=== PATIENT | female | born 1960 ===

== ENCOUNTER 2024-02-07 11:08 | Emergency (ER) | payer MEDICARE, SELFPAY ==
--- NOTE | ~2024-02-07 | XR_ITS ---
XR elbow LT min 3V Ordering provider: GINNY Cho History: . Fell today on elbow. Painful movement. cannot fully extend . Comparison: None. FINDINGS: BONES: No acute fracture or dislocation. Lucency is projected over the distal humerus are artifacts e xtending to the soft tissues. JOINT SPACES: Normal. SOFT TISSUES: Normal. No definite joint effusion. IMPRESSION: No definite acute osseous abnormality left elbow. Reviewed, dictated and finalized at location A.
[2024-02-07 11:59] VITALS: BP 187/70; PULSE 65; RESP 18; TEMP 36.6; O2SAT 100
--- NOTE | 2024-02-07 13:15 | ED.GENADULT ---
HPI - General Adult General Chief complaint: Extremity Injury, Upper Stated complaint: Left Arm Injury Source: patient Mode of arrival: ambulatory Limitations: no limitations History of Present Illness HPI narrative: Pt presents for evaluation of left elbow pain since last night. She indicates she was moving a box, when it collapsed. She fell to the ground and hit her left elbow against the ground. She did not hit her head. No loss of consciousness. She is not on blood thinners. She now reports 5/10 pain in the left elbow. Last night her pain was rated 9/10. She took tylenol and ibuprofen which seemed to help. Movement makes her symptoms worse. She is right hand dominant. Related Data Home Medications Medication Instructions Recorded Confirmed estradiol 1 mg tablet 1 mg DIRECTED 02/07/24 02/07/24 hydroxychloroquine 200 mg tablet 200 mg PO DIRECTED 02/07/24 02/07/24 omeprazole 40 mg capsule,delayed 40 mg DIRECTED 02/07/24 02/07/24 release Allergies Allergy/AdvReac Type Severity Reaction Status Date / Time codeine Allergy Severe Stopped Verified 02/07/24 12:06 Breathing Review of Systems Review of Systems: CONSTITUTIONAL: Denies fever, chills, or sweats. EYES: Denies visual changes, redness, or discharge. ENT: Denies rhinorrhea, congestion, sore throat, or otalgia. CARDIOVASCULAR: Denies chest pain, palpitations, or edema. RESPIRATORY: Denies cough or dyspnea. GASTROINTESTINAL: Denies abdominal pain, nausea, vomiting, or diarrhea. GENITOURINARY: Denies dysuria or hematuria. SKIN: Denies rash or itching. MUSCULOSKELETAL: Reports left elbow pain. NEUROLOGIC: Denies headache, numbness, dizziness, or weakness. PSYCHIATRIC: Denies anxiety or depression. [facility] Past Medical History Medical History (Updated 02/07/24 @ 13:19 by Praveen Barnard, GINNY, SHADI) GERD (gastroesophageal reflux disease) Hypertension Lupus Surgical History Surgical History History of appendectomy History of cholecystectomy Family History Family History Mother Family history non-contributory Social History Social History (Updated 02/07/24 @ 13:19 by Praveen Barnard, [facility], ) Smoking status: Never smoker Substance use: never Living arrangements: with family Gender identity (if verbalized by the patient): Female Sexual Orientation (if Verbalized by the Patient): Straight or Heterosexual Spiritual care concerns: No Exam Narrative: GENERAL: Well-appearing, well-nourished, and in no acute distress. HEAD: Normocephalic, atraumatic. EYES: PERRLA and EOMI. ENT: Nares clear, no rhinorrhea or epistaxis. Mucous membranes moist. Oropharynx without tonsillar hypertrophy exudate or other lesions. Bilateral TMs pearly patel nonbulging NECK: Supple. No adenopathy or masses. No carotid bruits or JVD CHEST: Clear to auscultation. No respiratory distress. No wheezes rales or rhonchi HEART: Regular rate and rhythm. No murmur heard. Normal peripheral pulses. ABDOMEN: Soft, nontender, nondistended, normal active bowel sounds. EXTREMITIES: There is tenderness throughout the left elbow. There is no crepitus or deformity. Full range of motion intact however she exhibits hesitancy with movement. Movement of the left elbow reproduces pain. 4/5 hand nurse private duty strength on left. 5/5 hand nurse private duty strength on right SKIN: Warm, dry, no rash. NEURO: No focal deficits. Alert and oriented x3. PSYCH: Normal mood and affect. Course Course Emergency Course: This is a 63-year-old female who presented for evaluation of left elbow pain following a fall yesterday. X-ray negative for fracture. Exam is consistent with contusion. Provided with sling. Advised on RICE therapy. OTC agents have been effective so continue as before. Follow up with primary provider. Go to the ER for intractable pain. Patient in agr
== END 2024-02-07 13:20 | disposition home or self-care (01) ==
PROVIDERS: Emergency Provider Nurse Practitioner; PCP Internal Medicine
DX: S50.02XA Contusion of left elbow, initial encounter (principal); I10 Essential (primary) hypertension; Z79.899 Other long term (current) drug therapy; W18.30XA Fall on same level, unspecified, initial encounter
CPT/HCPCS: 73080; 99203; A4565; G0463

== ENCOUNTER 2024-04-02 09:17 | Outpatient (CLI) | payer MEDICARE, SELFPAY ==
--- NOTE | ~2024-04-02 | XR_ITS ---
XR hand BI arthritis min 3V Ordering provider: Margi Rose MD History: . Pain . Comparison: None. FINDINGS: BONES: No acute fracture or dislocation. JOINT SPACES: Narrowing of the distal interphalangeal joints. SOFT TISSUES: Unremarkable. IMPRESSION: No acute osseous abnormality left and right hand. 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 Reviewed, dictated and finalized at location A. L SEWER
--- NOTE | ~2024-04-02 | XR_ITS ---
XR foot RT 2V Ordering provider: Margi Rose MD History: . Pain . Comparison: None. FINDINGS: BONES: No acute fracture or dislocation. Calcaneus spur. JOINT SPACES: Narrowing of the proximal and distal interphalangeal joints. No tarsal coalition. SOFT TISSUES: Normal. IMPRESSION: No acute osseous abnormality of the right foot. Reviewed, dictated and finalized at location A. [employer]
--- NOTE | ~2024-04-02 | XR_ITS ---
3 VIEWS LUMBAR SPINE Ordering provider: Margi Rose MD History: . Pain . Comparison: None. FINDINGS: VERTEBRAL BODIES: No visible fracture or subluxation. Levoscoliosis. DISK SPACES: Narrowing of the disc L4-L5 and L5-S1. Multilevel facet joint disease. SOFT TISSUES: Normal. IMPRESSION: No acute osseous abnormality lumbar spine. Multilevel degenerative disc disease. Reviewed, dictated and finalized at location A. ER APPRENTICE
--- NOTE | ~2024-04-02 | XR_ITS ---
XR sacroiliac joints min 3V Ordering provider: Margi Rose MD History: . Pain . Comparison: None. FINDINGS: BONES: No acute fracture or dislocation. JOINTS: The bilateral sacroiliac joint spaces appear slightly narrowed with osteoarthritic changes.. No bony fusion of the sacroiliac joints or bony erosions. SOFT TISSUES: Unremarkable. IMPRESSION: NO ACUTE OSSEOUS ABNORMALITY. MILD OSTEOARTHRITIC CHANGES OF THE SACROILIAC JOINTS. Reviewed, dictated and finalized at location A. EACH REP IMPRESSION: NO ACUTE OSSEOUS ABNORMALITY. MILD OSTEOARTHRITIC CHANGES OF THE SACROILIAC OVI NTS.
--- NOTE | ~2024-04-02 | XR_ITS ---
XR foot LT 2V Ordering provider: Margi Rose MD History: . Pain . Comparison: None. FINDINGS: BONES: No acute fracture or dislocation. Calcaneus spur. JOINT SPACES: Narrowing of the proximal and distal interphalangeal joints. No tarsal coalition. SOFT TISSUES: Normal. IMPRESSION: No acute osseous abnormality left foot. Mild to moderate Osteoarthritic changes. Reviewed, dictated and finalized at location A. LOCATOR
== END 2024-04-02 09:18 | disposition home or self-care (01) ==
PROVIDERS: PCP Internal Medicine; Visit Provider Internal Medicine
DX: M32.9 Systemic lupus erythematosus, unspecified (principal); M19.072 Primary osteoarthritis, left ankle and foot; M19.041 Primary osteoarthritis, right hand; M19.042 Primary osteoarthritis, left hand; M51.369 Other intervertebral disc degeneration, lumbar region without mention of lumbar back pain or lower extremity pain
CPT/HCPCS: 72110; 72202; 73130; 73620

== ENCOUNTER 2025-01-23 11:08 | Outpatient (CLI) | payer MEDICARE, SELFPAY ==
--- OUTSIDE RECORDS SUMMARY | 2025-01-23 12:06 | XMS_ITS | Encounter Summary ---
Author Organization [facility] Address [address] [place] [address] Phone Care Team Providers Care Grain Elevator Operator Name Role Phone Ben Perez MD Primary Care Provider [phone] Ben Perez MD Primary Care Provider Zonia Stone APRN, CNP Unavailable Priscila White MD Unavailable [phone] Reason for Visit * Reason Comments Medication Refill Encounter Details Date Type Department Care Team (Late st Contact Info) Description 12/26/2021 Refill [facility] - Gastroenterology - [address] [place] [address] Wyatt Waller MD [address] [place] [address] Medication Refill Social History Tobacco Use Types Packs/Day Years Used Date Smoking Tobacco: Never Smokeless Tobacco: Never Alcohol Use Standard Drinks/Week Comments Never 0 (1 standard drink = 0.6 oz pur e alcohol) AUDIT-C Answer Date Recorded Frequency of Alcohol Consumption Never 11/20/2018 Average Number of Drinks Not on file 019 Frequency of Binge Drinking Not on file 12/2018 Comments No Sex and Gender Information Value Date Recorded Sex Assigned at Not on file Legal Sex Female 12:18 AM CDT Gender Identity Not on file Sexual Orientation Not on file 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 * Telephone Encounter - Phoebe Hernandez - 12/29/2021 9:42 AM CDT Left message for pt to call back * Telephone Encounter - Renee Magana PAC - 12/28/2021 11:02 AM CDT Renal approved for 90 days. Further refills from primary care provider. If she is having problems needs an appointment. * Telephone Encounter - Tatiana Moser RN - 12/28/2021 10:58 AM CDT Pharmacy requesting refill of: Requested Prescriptions Pending Prescriptions Disp Refills ??? omeprazole (PriLOSEC) 40 MG CAPSULE DELAYED RELEASE [Pharmacy Med Name: Omeprazole 40 MG Oral Capsule Delayed Release] 90 Capsule 0 Sig: TAKE 1 CAPSULE BY MOUTH ONCE DAILY 1/2 HOUR BEFORE BREAKFAST Last fill: 12/30/[address] Waller Patients last OV with GI: 05/12/2020 Next Office Visit with GI: None scheduled. Per pathology report from 04/16/2020: Lico Shah, 04/18/2020 10:09 AM [facility] Biopsies are negative. Omeprazole order pended, please review. documented in this encounter Plan of Treatment Upcoming Encounters Date Type Department Care Team (Late st Contact Info) Description 04/30/2025 2:00 PM [facility] Office Visit [facility] - Primary Care - [place] [address] [place] [address] Ben Perez MD [address] [place] [address] documented as of this encounter Visit Diagnoses Not on filedocumented in this encounter Care Teams Grain Elevator Operator Relationship Specialty Start Date End Date Ben Perez MD PCP - General Internal Medicine 12/01/18 02/10/22 Ben Perez MD PCP - General Internal Medicine 03/18/22 Zonia Stone APRN, [employer] WORK[employer] [address] [place] [address] Nurse Practitioner Advanced Practice Nurse 05/27/23 Priscila White MD [address] [place] [address] Consulting Physician Gastroenterology 03/18/22 documented as of this encounter
--- OUTSIDE RECORDS SUMMARY | 2025-01-23 12:06 | XMS_ITS | Clinical Summary ---
Author Organization [facility] Address [address] [facility] [address] [place] [address] Phone Care Team Providers Care Home Health Attendant Name Role Phone Ben Perez MD Primary Care Provider Zonia Stone APRN, ROD STRAIGHTENER Unavailable Priscila White MD Unavailable [phone] Allergies Active Allergy Reactions Criticality Noted Date Comments Amlodipine Besylate Other (see Comments) 06/05/2024 constipation Carvedilol Unknown 12/08/2018 Codeine Anaphylaxis High 11/20/2018 Erythromycin Base Unknown 12/08/2018 Hydrochlorothiazide Itching Low 12/14/2019 Atorvastatin Calcium Other (see Comments) 12/08/2018 Lisinopril Other (see Comments) 11/20/2018 cough Hydrochlorothiazide-Triamter marilyn Unknown 12/08/2018 Pravastatin Sodium Unknown 12/08/2018 Rosuvastatin Unknown 12/08/2018 Statins Rash Medium 11/20/2018 Valsartan Other (see Comments) 12/08/2018 Valsartan-Hydrochlorothiazid e Itching Low 12/14/2019 Ezetimibe Rash Medium 11/20/2018 Medications estradiol (ESTRACE) 1 MG Tablet Take 1 mg by mouth every morning. Hazardous: Medication requires special safe handling and disposal. Active Acetaminophen (TYLENOL PO) Take 1-2 Tabs by mouth as needed. Active dicyclomine (BENTYL) 20 MG Tablet Take 1 Tablet by mouth 2 times daily. 120 Tablet 2 2 Active cyanocobalamin 1000 MCG Tablet Take 1,000 mcg by mouth daily. Active DULoxetine (CYMBALTA) [address] Particles Take 60 mg by mouth 2 times daily. 4 Active amLODIPine (NORVASC) 5 MG Tablet Take 1 tablet by mouth once daily 30 Tablet 5 Active losartan (COZAAR) 25 MG Tablet Take 1 Tablet by mouth 2 times daily. 180 Tablet 1 5 Active folic acid (FOLVITE) 1 MG Tablet Take 1,000 mcg by mouth daily. 5 Active methotrexate 2.5 MG Tablet TAKE 5 TABLETS BY MOUTH ONCE A WEEK 5 Active ezetimibe (ZETIA) 10 MG Tablet Take 1 tablet by mouth once daily 90 Tablet 1 5 Active omeprazole (PriLOSEC) 40 MG CAPSULE DELAYED RELEASE Take 1 capsule by mouth once daily 90 Capsule 5 Active Active Problems Problem Noted Date Diagnosed Date Systemic lupus erythematosus 07/25/2023 Mixed hyperlipidemia 07/25/2023 Vitamin B12 deficiency 07/25/2023 Essential hypertension, benign 07/11/2023 Arthralgia 07/11/2023 Chronic fatigue 07/11/2023 Gastroesophageal reflux disease without esophagi tis 05/12/2020 Irritable bowel syndrome with diarrhea 0 Encounters Date Type Department Care Team Description 11/25/2024 Refill [facility] - Gastroenterology - [place] [address] [place] [address] Ben Perez MD Medication Refill 11/18/2024 Refill [facility] - [facility] Medicine - [place] [address] [place] [address] Ben Perez MD Medication Refill 10/29/2024 2:45 PM CDT Office Visit [facility] - Internal Medicine - [place] [address] [place] [address] Ben Perez MD Essential hypertension, benign (Primary Dx); Mixed hyperlipidemia Discharge Disposition: Discharged to home or Selfcare 10/29/2024 Travel from Last 3 Months Immunizations Immunization Administration Dates Next Due Influenza Vaccine, Quadrivalent, PF 02/14,03/14/2021,03/05/2019,2017,03/01/2017 Influenza, Intradermal, Quad rivalent, Preservative Free 02/23/2016 Influenza, Recombinant, Quadrivalent,injectable, Pf 02/28/2020 Influenza, Seasonal, Injecta ble, Undefined 02/13/2014 Family History Medical History Relation Name Comments Diabetes Brother 1 Diabetes Brother 2 Diabetes Brother 3 Diabetes Brother 4 Coronary Artery Disease Father Diabetes Father Diabetes Paternal Aunt Diabetes Paternal Grandfather Diabetes Paternal Grandmother Diabetes Paternal Uncle Relation Name Status Comments Brother 1 Alive Brother 2 Alive Brother 3 Brother 4 Father Mother Paternal Aunt Paternal Grandfather Paternal Grandmother Paternal Uncle Social History Tobacco Use Types Packs/Day Years Used Date Smoking Tobacco: Never Passive Smoke Exposure: Never Smokeless Tobacco: Never Tobacco Cessation:Counseling Given: No Alcohol Use Standard Drinks/Week Comments Never 0 (1 standard drink = 0.6 oz pur e alcohol) [facility] Utilities Answer Date Recorded In the past 12 months has [employer], gas, oil, or water [employer] threatened to shut off services in your home? No 07/23/2023 Social Connection and Isolation Panel Answer Date Recorded In a typical week, how many times do you talk on the phone with family, friends, or neighbors? Patient declined 07/23/2023 How often do you get togethe r with friends or relatives? Patient declined 07/23/2023 How often do you attend methodist or protestant serv ices? Patient declined 07/23/2023 Do you belong to any clubs o r organizations such as methodist groups, unions, fraternal or athletic groups, or school groups? Patient declined 07/23/2023 How often do you attend meet ings of the clubs or organizations you belong to? Patient declined 07/23/2023 Are you , , di vorced, , never , or living with a partner? 07/23/2023 AUDIT-C Answer Date Recorded Q1: How often do you have a drink containing alcohol? Never 07/23/2023 Q2: How many drinks containi ng alcohol do you have on a typical day when you are drinking? Patient does not drink Q3: How often do you have si x or more drinks on one occasion? Never 07/23/2023 Overall Financial Resource Strain (CARDIA) Answe r Date Recorded How hard is it for you to pa y for the very basics like food, housing, medical care, and heating? Patient declined 07/23/2023 PHQ-2 Answer Date Recorded Total Score - Questions 1-9 0 10/14 [facility] - Occupational Stress Questionnaire Answer Date Recorded Do you feel stress - tense, restless, nervous, or anxious, or unable to sleep at night because your mind is troubled all the time - these days? Patient declined 07/23/2023 Exercise Vital Sign Answer Date Recorde d On average, how many days pe r week do you engage in moderate to strenuous exercise (like a brisk walk)? Patient declined On average, how many minutes do you engage in exercise at this level? Patient declined 07/23/2023 Hunger Vital Sign Answer Date Recorded Within the past 12 months, y ou worried that your food would run out before you got the money to buy more. Patient declined Within the past 12 months, t he food you bought just didn't last and you didn't have money to get more. Patient declined 01/2024 PRAPARE - Transportation Answer Date Re corded In the past 12 months, has l ack of transportation kept you from medical appointments or from getting medications? Patient declined 07/23/2023 In the past 12 months, has l ack of transportation kept you from meetings, work, or from getting things needed for daily living? Patient declined 07/23/2023 Housing Stability Vital Sign Answer Antolin e Recorded In the last 12 months, was t here a time when you were not able to pay the mortgage or rent on time? Patient declined 07/23/19 24 Number of Places Lived in the Last Year Not on f ile 07/23/2023 In the last 12 months, was t here a time when you did not have a steady place to sleep or slept in a nursing home (including now)? 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 Not on file Not on file Last Filed Vital Signs Vital Sign Reading Time Taken Comments Blood Pressure 136/78 10/29/2024 2:47 PM CDT Pulse 85 10/29/2024 2:47 PM CDT Temperature 36.5 C (97.7 F) 10/29/2024 2:47 PM CDT Respiratory Rate 12 10/29/2024 2:47 PM CDT Oxygen Saturation 99% 10/29/2024 2:47 PM CDT Inhaled Oxygen Concentration - - Weight 87.4 kg (192 lb 9.6 oz) 10/29/2024 2:47 P M CDT Height 160 cm (5' 3) 10/29/2024 2:47 PM CDT Body Mass Index 34.12 10/29/2024 2:47 PM CDT Plan of Treatment Upcoming Encounters Date Type Department Care Team (Late st Contact Info) Description 04/30/2025 2:00 PM DIRECTOR OF COUNTERINTELLIGENCE Office Visit [facility] - [place] Care - [place] [address] [place] [id number] Ben Perez MD [address] [place] [address] Health Maintenance Due Date Last Done Comments Hepatitis C Virus (HCV) Screening 1960 Cologuard 2003 Respiratory Syncytial Virus (RSV) Immunization (Adult) (1 - Risk 60-74 years 1-dose series) 2018 Immunochemical Fecal Occult Blood 12/23/2021 12/23/2020, 09/14/2018 Mammogram 10/20/2024 10/21/2023, 01/02/2021 Influenza Immunization (#1) 2025 10/0 01/2024, 03/25/2023, 03/13/2022, Additional history exists SARS-COV-2 Immunization (6 - Moderna risk season) 2025 02/22/2024, 03/25/2023, 03/14/2021, Additional history exists DEXA Bone Density 10/20/2025 10/21/2023 Colonoscopy 12/08/2028 12/08/2018 Colorectal Cancer Screening 12/08/2028 Pneumococcal Immunization (50+ years) Completed 07/02/2024 Pneumococcal Immunization Combined Discontinued 07/02/2024 DTaP/Tdap/Td Immunization Discontinued 08/29/2024 TdaP Immunization Completed 08/29/2024 Zoster Immunization Completed 08/29/2024, Hepatitis B Immunization Aged Out No longer eligible based on patient's age to complete this topic Human Papillomavirus (HPV) Immunization Aged Out No longer eligible based on patient's age to complete this topic Meningococcal Immunization (ACWY) Aged Out No longer eligible based on patient's age to complete this topic Rotavirus Immunization Aged Out No lo nger eligible based on patient's age to complete this topic Procedures Procedure Name Priority Date/Time Associated Diagnosis Comments [facility] BONE DENSITOMETRY AXIAL SKELETON Routine 10/21/2023 11:00 AM CDT Screening for osteoporosis Menopause [facility] SCREENING BILATERAL DIGITAL W CAD W LAURA Routine 10/21/2023 10:47 AM CDT Encounter for screening mammogram for malignant neoplasm of breast from Last 3 Months or Most Recently Relevant to Health Maintenance Results * [facility] BONE DENSITOMETRY AXIAL SKELETON (10/21/2023 11:00 AM CDT) Anatomical Region Laterality Modality BODY N/A Computed Radiogr aphy 10/21/2023 6:49 PM CDT Impressions 10/21/2023 6:51 PM CDT IMPRESSION: Low Bone Mass. REFERENCE: Bone mineral density: T-Score: Normal (T-score above or = -1.0) Low bone mass (T-score between -1.0 and -2.5) replaces the previously used term osteopenia Osteoporosis (T-score = or below -2.5) Z-Score: Within the expected range for age (Z-score above -2.0) Below the expected range for age (Z-score is -2.0 or below) Please see below follow up recommendations. Medical evaluation for secondary causes of low bone mineral density may be appropriate. FRAX is a World Health Organization validated fracture risk assessment tool that calculates a person's 10 year probability of a major osteoporosis related fracture and hip fracture. According to the National Osteoporosis Foundation guidelines, postmenopausal women and men age 50 or older with low bone mass and a 10 year probability of a major osteoporosis related fracture = or greater than 20% or a 10 year probability of a hip fracture = or greater than 3% should be considered for pharmacological treatment for the prevention of osteoporosis. For further information, including treatment recommendations, please refer to the 2019 ISCD Official Positions (http://www.iscd.org) and the NOF's Clinician's Guide to Prevention and Treatment of Osteoporosis (http://www.nof.org/professionals/clinical-guidelines) Narrative 10/21/2023 6:51 PM CDT EXAM DESCRIPTION: TOVA BONE DENSITOMETRY AXIAL SKELETON REASON FOR STUDY: 63 y/o year old F with given history of: Screening for osteoporosis, Menopause Wireless Engineer/Model: [email or web address] (S/N [id number]) CLINICAL INFORMATION: Current height: 62 inches Maximum height: 64.5 inches Weight: 200 pounds Risk factors: Postmenopausal, adult fracture COMPARISON: None available FINDINGS: AP LUMBAR SPINE L1-L4: Total BMD is 1.023 g/cm2 T-score is -1.4 LEFT HIP: Total BMD is 1.005 g/cm2 T-score is 0.0 Femoral neck BMD is 0.827 g/cm2 T-score is -1.5 FRAX: 10 year risk for a major osteoporotic fracture is 13.6 %, 10 year risk for a hip fracture is 1.4 % THIS IS AN ELECTRONICALLY VERIFIED FINAL REPORT 10/21/2023 6:49 PM - Electronically signed by Jeffrey Chavarria M.D. MF: [email or web address] Report ID: [id number] Reading Location: [id number] Procedure Note Jeffrey Chavarria MD - 10/21/2023 EXAM DESCRIPTION: TOVA BONE DENSITOMETRY AXIAL SKELETON REASON FOR STUDY: 63 y/o year old F with given history of: Screening for osteoporosis, Menopause Wireless Engineer/Model: [email or web address] (S/N [id number]) CLINICAL INFORMATION: Current height: 62 inches Maximum height: 64.5 inches Weight: 200 pounds Risk factors: Postmenopausal, adult fracture COMPARISON: None available FINDINGS: AP LUMBAR SPINE L1-L4: Total BMD is 1.023 g/cm2 T-score is -1.4 LEFT HIP: Total BMD is 1.005 g/cm2 T-score is 0.0 Femoral neck BMD is 0.827 g/cm2 T-score is -1.5 FRAX: 10 year risk for a major osteoporotic fracture is 13.6 %, 10 year risk for a hip fracture is 1.4 % THIS IS AN ELECTRONICALLY VERIFIED FINAL REPORT 10/21/2023 6:49 PM - Electronically signed by Jeffrey Chavarria M.D. MF: [email or web address] Report ID: [id number] Reading Location: [place] [address] IMPRESSION: Low Bone Mass. REFERENCE: Bone mineral density: T-Score: Normal (T-score above or = -1.0) Low bone mass (T-score between -1.0 and -2.5) replaces the previously used term osteopenia Osteoporosis (T-score = or below -2.5) Z-Score: Within the expected range for age (Z-score above -2.0) Below the expected range for age (Z-score is -2.0 or below) Please see below follow up recommendations. Medical evaluation for secondary causes of low bone mineral density may be appropriate. FRAX is a World Health Organization validated fracture risk assessment tool that calculates a person's 10 year probability of a major osteoporosis related fracture and hip fracture. According to the National Osteoporosis Foundation guidelines, postmenopausal women and men age 50 or older with low bone mass and a 10 year probability of a major osteoporosis related fracture = or greater than 20% or a 10 year probability of a hip fracture = or greater than 3% should be considered for pharmacological treatment for the prevention of osteoporosis. For further information, including treatment recommendations, please refer to the 2019 ISCD Official Positions (http://www.iscd.org) and the NOF's Clinician's Guide to Prevention and Treatment of Osteoporosis (http://www.nof.org/professionals/clinical-guidelines) Meredith Verdugo APRN IMG DEXA ORDERABLES Final Resul t * TOVA SCREENING BILATERAL DIGITAL W CAD W LAURA (10/21/2023 10:47 AM CDT) Anatomical Region Laterality Modality breast Bilateral Mammography 10/21/2023 10:2 1 AM CDT Narrative 10/21/2023 2:03 PM CDT - TOVA SCREENING BILATERAL DIGITAL W CAD W LAURA BILATERAL DIGITAL SCREENING MAMMOGRAM 3D/2D WITH CAD WITH MEDIOLATERAL OBLIQUE CRANIOCAUDAL: 10/21/2023 The study was acquired using digital technology and interpreted from soft copy. Current study was also evaluated with Sensus ExperienceD version 7.2. 2D digital mammographic views, as well as 3D digital tomosynthesis were performed in the CC and MLO projections. CLINICAL: Routine screening. Patient has no complaints. No personal history of cancer. No family history of breast cancer. COMPARISONS: Comparison is made to exams dated: 01/02/2021, 08/30/2014, and 03/06/2010 [facility]. BREAST TISSUE:The tissue of both breasts is predominantly fatty. FINDINGS: No significant masses, calcifications, or other findings are seen in either breast. There has been no significant interval change. IMPRESSION: BI-RAD 1 NEGATIVE There is no mammographic evidence of malignancy. A 1 year screening mammogram is recommended. A letter will be sent to the patient with these results. The patient will be entered into a reminder system with a target due date of 1 year for her next screening exam. Electronically signed by: Rocio benjamin/darshana:10/21/2023 13:33:43 Chiropractor Assistant(s): RT Eron(Sarah)(M), [facility] letter sent: Normal Exam Reading location: [facility] BI-RADS: 1 Negative Procedure Note Rocio Celeste MD - 10/21/2023 - TOVA SCREENING BILATERAL DIGITAL W CAD W LAURA BILATERAL DIGITAL SCREENING MAMMOGRAM 3D/2D WITH CAD WITH MEDIOLATERAL OBLIQUE CRANIOCAUDAL: 10/21/2023 The study was acquired using digital technology and interpreted from soft copy. Current study was also evaluated with ICAD version 7.2. 2D digital mammographic views, as well as 3D digital tomosynthesis were performed in the CC and MLO projections. CLINICAL: Routine screening. Patient has no complaints. No personal history of cancer. No family history of breast cancer. COMPARISONS: Comparison is made to exams dated: 01/02/2021, 08/30/2014, and 03/06/2010 [facility]. BREAST TISSUE:The tissue of both breasts is predominantly fatty. FINDINGS: No significant masses, calcifications, or other findings are seen in either breast. There has been no significant interval change. IMPRESSION: BI-RAD 1 NEGATIVE There is no mammographic evidence of malignancy. A 1 year screening mammogram is recommended. A letter will be sent to the patient with these results. The patient will be entered into a reminder system with a target due date of 1 year for her next screening exam. Electronically signed by: Rocio benjamin/darshana:10/21/2023 13:33:43 Chiropractor Assistant(s): RT Eron(R)(M), [facility] letter sent: Normal Exam Reading location: [facility] BI-RADS: 1 Negative Meredith Verdugo APRN IMG MAMMO ORDERABLES Final Resu lt from Last 3 Months or Most Recently Relevant to Health Maintenance Insurance MEDICARE C [employer]ET[employer] Care Teams Home Health Attendant Relationship Specialty Start Date End Date Ben Perez MD PCP - General Internal Medicine 03/18/22 Zonia Stone APRN, ROD STRAIGHTENER [address] [place] [address] Nurse Practitioner Advanced Practice Nurse 05/27/23 Priscila White MD [address] [place] [address] Consulting Physician Gastroenterology 03/18/22
--- OUTSIDE RECORDS SUMMARY | 2025-01-23 12:06 | XMS_ITS | Encounter Summary ---
Author Organization [facility] Address [address] [place] [address] Phone Care Team Providers Care Manager Document Control Name Role Phone Ben Perez MD Primary Care Provider [phone] Zonia Stone APRN, CNP Unavailable Priscila White MD Unavailable [phone] Reason for Visit * Reason Comments Medication Refill Encounter Details Date Type Department Care Team (Late st Contact Info) Description 09/06/2023 Refill [facility] - Internal Medicine - [place] [address] [place] [address] Ben Perez MD [address] [place] [address] Medication Refill Social History Tobacco Use Types Packs/Day Years Used Date Smoking Tobacco: Never Passive Smoke Exposure: Never Smokeless Tobacco: Never Alcohol Use Standard Drinks/Week Comments Never 0 (1 standard drink = 0.6 oz pur e alcohol) [facility] Utilities Answer Date Recorded In the past 12 months has [employer], gas, oil, or water [employer] threatened to shut off services in your home? No 07/23/2023 Social Connection and Isolation Panel Answer Date Recorded In a typical week, how many times do you talk on the phone with family, friends, or neighbors? Patient declined 07/23/2023 How often do you get togethe r with friends or relatives? Patient declined 07/23/2023 How often do you attend scientologist or mandaeism serv ices? Patient declined 07/23/2023 Do you belong to any clubs o r organizations such as scientologist groups, unions, fraternal or athletic groups, or [...] Recorded Total Score - Questions 1-9 0 06/17 [facility] - Occupational Stress Questionnaire Answer Date Recorded [...] place to sleep or slept in a care home (including now)? Patient declined 07/23/2023 Sexually [...] encounter Miscellaneous Notes * Telephone Encounter - Eli Miner RN - 09/06/2023 8:15 AM CDT Per nursing clinical judgement, provider to review and approve the medication(s) order(s) if appropriate. Requested Prescriptions Pending Prescriptions Disp Refills amLODIPine (NORVASC) 5 MG Tablet [Pharmacy Med Name: amLODIPine Besylate 5 MG Oral Tablet] 30 Tablet 0 Sig: Take 1 tablet by mouth once daily Calcium-Channel Blockers Protocol Passed - 09/06/2023 6:50 AM Passed - BP on record in the past year Clinician-entered: BP Readings from Last 3 Encounters: 07/25/23 132/70 07/11/23 158/84 05/27/23 (!) 136/92 Patient-entered: No data recorded Passed - Visit with relevant provider in past 12 months or upcoming 90 days Recent Visits Date Type Provider Dept 07/25/23 Office Visit Ben Perez MD [facility] 07/11/23 Office Visit Ben Perez MD [facility] [place] Showing recent visits within past 365 days and meeting all other requirements Future Appointments Date Type Provider Dept 11/07/23 Appointment Ben Perez MD [facility] [place] Showing future appointments within next 90 days and meeting all other requirements documented in this encounter Plan of Treatment Upcoming Encounters Date Type Department Care Team (Late st Contact Info) Description 04/30/2025 2:00 PM DENTISTRY PROFESSOR Office Visit [facility] - Primary Care - [place] [address] [place] [address] Ben Perez MD [address] [place] [address] documented as of this encounter Visit Diagnoses Not on filedocumented in this encounter Additional Health Concerns Assessment Noted Time PHQ-9 Depression Total Score: 0 07/11/19 24 1:46 PM DENTISTRY PROFESSOR documented as of this encounter Care Teams Manager Document Control Relationship Specialty Start Date End Date Ben Perez MD PCP - General Internal Medicine 03/18/22 Zonia Stone APRN, BUNCH BREAKER MACHINE OPERATOR [address] [place] [address] Nurse Practitioner Advanced Practice Nurse 05/27/23 Priscila White MD [address] [place] [address] Consulting Physician Gastroenterology 03/18/22 documented as of this encounter
--- OUTSIDE RECORDS SUMMARY | 2025-01-23 12:06 | XMS_ITS | Encounter Summary ---
Author Organization [facility] Address [address] [place] [address] Phone Care Team Providers Care Fireman Name Role Phone Ben Perez MD Primary Care Provider Zonia Stone APRN CROWN PRESSER Unavailable Priscila White MD Unavailable [phone] Reason for Visit * Reason Comments Medication Refill Encounter Details Date Type Department Care Team (Late st Contact Info) Description 03/20/2023 [facility]ill [facility] [address] [place] [phone] Priscila White MD [address] [place] [address] Medication Refill Social History Tobacco Use Types Packs/Day Years Used Date Smoking Tobacco: Never Smokeless Tobacco: Never Alcohol Use Standard Drinks/Week Comments Never 0 (1 standard drink = 0.6 oz pur e alcohol) AUDIT-C Answer Date Recorded Frequency of Alcohol Consumption Never 11/20/2018 Average Number of Drinks Not on file 019 Frequency of Binge Drinking Not on file 12/2018 Sexually Active Control Partners Comments Not Currently [...] encounter Miscellaneous Notes * Telephone Encounter - Tatiana Moser RN - 03/22/2023 9:14 AM PRODUCT APPLICATIONS SCIENTIST Medication [facility]illed and signed [facility] medication [facility] order for pediatric and adult patients. UCT APPLICATIONS SCIENTIST * Telephone Encounter - Tatiana Moser RN - 03/22/2023 9:07 AM PRODUCT APPLICATIONS SCIENTIST Pharmacy requesting refill of: Requested Prescriptions Pending Prescriptions Disp Refills ??? omeprazole (PriLOSEC) 40 MG CAPSULE DELAYED RELEASE [Pharmacy Med Name: Omeprazole 40 MG Oral Capsule Delayed Release] 90 Capsule 0 Sig: Take 1 capsule by mouth once daily Last fill: 12/17/2022 Patients last OV with GI: 03/18/2022 Next Office Visit with GI: None scheduled. Called patient to offer an appt. Spoke with patient. appt scheduled for 05/27/2023 due to she will be on Medicare. UCT APPLICATIONS SCIENTIST documented in this encounter Plan of Treatment Upcoming Encounters Date Type Department Care Team (Late st Contact Info) Description 04/30/2025 2:00 PM PRODUCT APPLICATIONS SCIENTIST Office Visit [facility] - Primary Care - [place] [address] [place] [phone] Ben Perez MD [address] [place] [address] documented as of this encounter Visit Diagnoses Not on filedocumented in this encounter Care Teams Fireman Relationship Specialty Start Date End Date Ben Perez MD PCP - General Internal Medicine 03/18/22 Zonia Stone APRN, CROWN PRESSER [address] [place] [address] Nurse Practitioner Advanced Practice Nurse 05/27/23 Priscila White MD [address] [place] [address] Consulting Physician Gastroenterology 03/18/22 documented as of this encounter
--- OUTSIDE RECORDS SUMMARY | 2025-01-23 12:06 | XMS_ITS | Clinical Summary ---
Author Organization [facility] Address [address] [place] [address] Care Team Providers Care Development Educator Name Role Phone Ben Perez MD Primary Care Provider [phone] Allergies Active Allergy Reactions Criticality Noted Date Comments Amlodipine Itching Low 12/14/2019 Atorvastatin Hives Reaction: Hives, Nebivolol Unknown 12/14/2019 Carvedilol Unknown 12/14/2019 Codeine Other (See comments) Low Reaction: can't breath, , Erythromycin Nausea only,Vomiting Reaction: Nausea, Vomiting, Ezetimibe Rash Reaction: rash, Hydrochlorothiazide Itching Low 12/14/2019 Rosuvastatin Rash Reaction: rash, Triamterene-Hydrochlorothiaz id Itching Low 12/14/2019 Valsartan-Hydrochlorothiazid e Itching Low 12/14/2019 Medications omeprazole (PriLOSEC) 40 mg capsule Take 1 capsule (40 mg total) by mouth daily 09/10/2019 Active loratadine (CLARITIN) 10 mg tablet Take 1 tablet (10 mg total) by mouth daily Active amLODIPine (NORVASC) 5 mg tablet Take 1 tablet (5 mg total) by mouth daily 07/11/2023 Active estradioL (ESTRACE) 1 mg tablet Take 1 tablet by mouth once daily 90 tablet 1 08/23/2024 Active Active Problems Problem Noted Date Diagnosed Date Hypertension 08/31/2013 Overview (08/18/2016): Hypertension Surgical History Surgery Date Site/Laterality Comments OTHER SURGICAL HISTORY 05/16/1980 - 05/15/1981 : OTHER SURGICAL HISTORY 05/16/1982 - 05/15/1983 : OTHER SURGICAL HISTORY Cyst removal. TONSILLECTOMY Tonsillectomy SECTION section OTHER SURGICAL HISTORY 05/16/1993 - 05/15/1994 SUJATHA, LSO OTHER SURGICAL HISTORY 05/16/1997 - 05/15/1998 L/S RSO TONSILLECTOMY Tonsillectomy OTHER SURGICAL HISTORY Cholecystectomy, open Medical History Medical History Date Comments Hx Other Medical 1980 ; Outc ome: 35 week 4 lb(s) 5 oz Female Hx Other Medical 1982 ; Outc ome: 39 week 7 lb(s) 5 oz Female Hx Other Medical Hypercholestero lemia Hypertension Hypertension Hx Other Medical 03/2010 Osteopenia of t he spine Family History Medical History Relation Name Comments Diabetes Father Diabetes mellit us; Heart disease Father Heart disease; Coronary artery disease Other 1 Fami ly history of Coronary artery disease; Diabetes Other 2 Family history of Diabetes mellitus; Hyperlipidemia Other 3 Family histor y of Hyperlipidemia; Hypertension Other 4 Family history of Hypertension; Relation Name Status Comments Father Other 1 Other 2 Other 3 Other 4 Social History Tobacco Use Types Packs/Day Years Used Date Smoking Tobacco: Never Smokeless Tobacco: Never Tobacco Cessation:Counseling Given: Not Answered Alcohol Use Standard Drinks/Week Comments No 0 (1 standard drink = 0.6 oz pur e alcohol) Humiliation, Afraid, Rape, and Kick questionnair e Answer Date Recorded Within the last year, have y ou been afraid of your partner or ex-partner? No 07/18/2023 Within the last year, have y ou been humiliated or emotionally abused in other ways by your partner or ex-partner? No Within the last year, have y ou been kicked, hit, slapped, or otherwise physically hurt by your partner or ex-partner? No 07/18/2023 Within the last year, have y ou been raped or forced to have any kind of sexual activity by your partner or ex-partner? No 07/18/2023 AUDIT-C Answer Date Recorded Q1: How often do you have a drink containing alcohol? Never 07/18/2023 Q2: How many drinks containi ng alcohol do you have on a typical day when you are drinking? Patient does not drink Q3: How often do you have si x or more drinks on one occasion? Never 07/18/2023 PHQ-2 Answer Date Recorded PHQ-2 Total Score (If total score is 3 or more points, staff should administer the PHQ-9) 0 12/25/2021 Comments No Sex and Gender Information Value Date Recorded Sex Assigned at Not on file Legal Sex Female 9:51 AM PROFESSOR OF VOICE Gender Identity Not on file Sexual Orientation Not on file Obstetrics History Para Term AB IAB SAB Ectopic Multiple Livin g Live Births 4 2 1 1 1 2 2 Date Outcome GA Total Labor Labor/2nd/3rd Weight Sex Type Anes PTL Mallory A1 A5 Name Clin AB 1 35w 0d 1.956 kg (4 lb 5 oz) F CS-Un spec Living 3 Term 39w 0d 3.317 kg (7 lb 5 oz) F Vag-S pont Living Last Filed Vital Signs Vital Sign Reading Time Taken Comments Blood Pressure 134/82 07/18/2023 9:24 AM PROFESSOR OF VOICE Pulse 72 08/31/2013 11:14 AM CDT Temperature - - Respiratory Rate - - Oxygen Saturation - - Inhaled Oxygen Concentration - - Weight 92.6 kg (204 lb 3.2 oz) 07/18/2023 9:24 A M PROFESSOR OF VOICE Height 160 cm (5' 3) 07/18/2023 9:24 AM PROFESSOR OF VOICE Body Mass Index 36.17 07/18/2023 9:24 AM PROFESSOR OF VOICE Plan of Treatment Health Maintenance Due Date Last Done Comments Colon Cancer Screening-Colonoscopy 1958 Fall Risk Assessment 1958 Hepatitis C Screening 1958 Osteoporosis Screening-Bone Density Scan 1958 DTaP/Tdap/Td Vaccine (1 - Tdap) 1969 Hepatitis B Screening 1976 Pneumococcal vaccine 65+ (1 of 1 - PCV) 2008 Zoster Vaccine (1 of 2) 2008 Breast Cancer Screening-Mammogram 01/02/2022 01/02/2021, 01/02/2021, 01/02/2021 Depression Screening 12/25/2022 12/25/2021, 12/23/2020, 09/13/2017 Well Visit 65+ 2023 12/25/2021, 12/14, 12/14/2019, Additional history exists Influenza Vaccine (#1) 2025 2, 03/14/2021, 02/28/2020, Additional history exists Procedures Procedure Name Priority Date/Time Associated Diagnosis Comments MAMMOGRAPHY Schedule Routine, Read Routine (OP Routine) 01/02/2021 from Last 3 Months or Most Recently Relevant to Health Maintenance Results * MAMMOGRAPHY (01/02/2021) Anatomical Region Laterality Modality Breast Mammography Dorinda Hernandez KEYBOARD INSTRUMENT TUNER IMG MAMMO PROCEDURES Whit[place] l Result from Last 3 Months or Most Recently Relevant to Health Maintenance Insurance [employer] MEDICARE GOLD Care Teams Development Educator Relationship Specialty Start Date End Date Ben Perez MD [address] [place] [address] PCP - General 08/13/16
--- OUTSIDE RECORDS SUMMARY | 2025-01-23 12:06 | XMS_ITS | Clinical Summary ---
Author Organization [facility] Address [address] [place] [address] Care Team Providers Care Telegraph Service Clerk Name Role Phone Unavailable Primary Care Provider Unavailabl e Source Comments [facility],non-owned Affiliates and Associated Physician Practices is amultiple site organization consisting of ambulatory clinics and hospital sitesin [place], [place], [place] and [place]. This disclosure is being madepursuant to the Care Everywhere program and may not contain all information available regarding this patient. Last updated 18.[facility] Blue Box Allergies Active Allergy Reactions Criticality Noted Date Comments Codeine 03/01/2017 Immunizations Immunization Administration Dates Next Due FLU VACCINE QUAD IIV4 PF ID 02/23/2016 INFLUENZA VACCINE, QUADR. (F LUZONE; FLULAVAL; FLUARIX; AFLURIA QUADRIVALENT; 6MO+), 0.5 ML (IIV4) 03/01/2017 Social History Tobacco Use Types Packs/Day Years Used Date Smoking Tobacco: Never Assessed Comments Unknown Sex and Gender Information Value Date Recorded Sex Assigned at Not on file Legal Sex Female 4:49 PM CDT Gender Identity Not on file Sexual Orientation Not on file Plan of Treatment Health Maintenance Due Date Last Done Comments BONE DENSITY TESTING 1960 COLOGUARD (AGES 45-75) - COL ON CA SCREENING 1958 COLON MONITORING 1958 COLONOSCOPY - COLON CA SCREENING 1958 CT COLONOGRAPHY - COLON CA SCREENING 1958 Colorectal Cancer Screening 1958 FIT - COLON CA SCREENING 1958 FLEX SIG - COLON CA SCREENING 1958 LIPID TESTING 1958 MAMMOGRAM 1958 HEPATITIS C SCREENING 05/13/1976 DTAP/TDAP/TD VACCINES (1 - Tdap) 1977 PNEUMOCOCCAL VACCINE 50+ (1 of 1 - PCV) 2008 ZOSTER VACCINE (1 of 2) 2008 DEPRESSION SCREENING 05/16/2024 COVID-19 VACCINE (1 - 2023-2 5 season) 2025 INFLUENZA VACCINE (#1) 2025 7, 02/23/2016 Respiratory Syncytial Virus (RSV) Vaccine Pt: or over 60 yrs (1 - 1-dose 75+ series) 2033 HEPATITIS B VACCINE Aged Out No longe r eligible based on patient's age to complete this topic HIB VACCINE Aged Out No longer eligi ble based on patient's age to complete this topic HPV VACCINE Aged Out No longer eligi ble based on patient's age to complete this topic MENINGOCOCCAL (Group B) VACCINE SHARED DECISION-MAKING Aged Out No longer eligible based on patient's age to complete this topic MENINGOCOCCAL GROUPS A/C/Y/W VACCINE Aged Out No longer eligible b ased on patient's age to complete this topic Insurance JIGNESH TANNA
--- OUTSIDE RECORDS SUMMARY | 2025-01-23 12:06 | XMS_ITS | Encounter Summary ---
Author Organization [facility] Address [address] [place] [address] Phone Care Team Providers Care Compliance Associate Name Role Phone Ben Perez MD Primary Care Provider Zonia Stone APRN CIA AGENT Unavailable Priscila White MD Unavailable [phone] Reason for Visit * Reason Comments Medication Refill Encounter Details Date Type Department Care Team (Late st Contact Info) Description 09/25/2022 Refill [facility] - G[facility]enter[facility] [address] [place] [phone] Priscila White MD [address] [place] [address] Medication Refill Social History Tobacco Use Types [...] Telephone Encounter - Tatiana Moser RN - 09/27/2022 9:37 AM CDT Medication [facility] and [facility] order for pediatric and adult patients. documented in this encounter Plan of Treatment Upcoming Encounters Date Type Department Care Team (Late st Contact Info) Description 04/30/2025 2:00 PM TALENT ACQUISITION ASSOCIATE Office Visit [facility] - Primary Care - [place] [address] [place] [address] Ben Perez MD [address] [place] [address] documented as of this encounter Visit Diagnoses Not on filedocumented in this encounter Care Teams Compliance Associate Relationship Specialty Start Date End Date Ben Perez MD PCP - General Internal Medicine 03/18/22 Zonia Stone APRN, CIA AGENT [address] [place] [address] Nurse Practitioner Advanced Practice Nurse 05/27/23 Priscila White MD [address] [place] [address] Consulting Physician Gastroenterology 03/18/22 documented as of this encounter
--- OUTSIDE RECORDS SUMMARY | 2025-01-23 12:06 | XMS_ITS | Encounter Summary ---
Author Organization [facility] Address [address] [place] [address] Phone Care Team Providers Care Jewel Hole Cornerer Name Role Phone Ben Perez MD Primary Care Provider Zonia Stone APRN PARTY PLAN SALES CONSULTANT Unavailable Priscila White MD Unavailable [phone] Reason for Visit * Reason Comments Medication Refill Encounter Details Date Type Department Care Team (Late st Contact Info) Description 06/18/2023 Refill [facility] [address] [place] [phone] Priscila White MD [address] [place] [address] Medication Refill Social History Tobacco Use Types [...] Telephone Encounter - Tatiana Moser RN - 06/20/2023 11:18 AM ARTIFICIAL BREEDING TECHNICIAN Medication [facility] order for pediatric and adult patients. FICIAL BREEDING TECHNICIAN documented in this encounter Plan of Treatment Upcoming Encounters Date Type Department Care Team (Late st Contact Info) Description 04/30/2025 2:00 PM ARTIFICIAL BREEDING TECHNICIAN Office Visit [facility] - Primary Care - [place] [address] [place] [address] Ben Perez MD [address] [place] [address] documented as of this encounter Visit Diagnoses Not on filedocumented in this encounter Care Teams Jewel Hole Cornerer Relationship Specialty Start Date End Date Ben Perez MD PCP - General Internal Medicine 03/18/22 Zonia Stone APRN, PARTY PLAN SALES CONSULTANT [address] [place] [address] Nurse Practitioner Advanced Practice Nurse 05/27/23 Priscila White MD [address] [place] [address] Consulting Physician Gastroenterology 03/18/22 documented as of this encounter
--- OUTSIDE RECORDS SUMMARY | 2025-01-23 12:06 | XMS_ITS | Encounter Summary ---
Author Organization [facility] Address [address] [place] [address] Phone Care Team Providers Care Chemical Research Technician Name Role Phone Ben Perez MD Primary Care Provider Zonia Stone APRN SHIP SURVEYOR Unavailable Priscila White MD Unavailable [phone] Reason for Visit * Reason Comments Medication Refill Encounter Details Date Type Department Care Team (Late st Contact Info) Description 12/17/2022 Refill [facility] - [facility]astroenter[facility] [address] [place] [address] Priscila White MD [address] [place] [address] Medication Refill Social History Tobacco Use Types [...] Telephone Encounter - Tatiana Moser RN - 12/17/2022 10:59 AM CDT Medication [facility] and signed [facility] medication standing order for pediatric and adult patients. documented in this encounter Plan of Treatment Upcoming Encounters Date Type Department Care Team (Late st Contact Info) Description 04/30/2025 2:00 PM INSTRUMENTS SALES REPRESENTATIVE Office Visit [facility] - Primary Care - [place] [address] [place] [address] Ben Perez MD [address] [place] [address] documented as of this encounter Visit Diagnoses Not on filedocumented in this encounter Care Teams Chemical Research Technician Relationship Specialty Start Date End Date Ben Perez MD PCP - General Internal Medicine 03/18/22 Zonia Stone APRN, SHIP SURVEYOR [address] [place] [address] Nurse Practitioner Advanced Practice Nurse 05/27/23 Priscila White MD [address] [place] [address] Consulting Physician Gastroenterology 03/18/22 documented as of this encounter
--- OUTSIDE RECORDS SUMMARY | 2025-01-23 12:06 | XMS_ITS | Encounter Summary ---
Author Organization [facility] Address [address] [place] [address] Phone Care Team Providers Care Ceramist Name Role Phone Ben Perez MD Primary Care Provider Zonia Stone APRN NATURAL GAS TRADER Unavailable Priscila White MD Unavailable [phone] Reason for Visit * Reason Comments Medication Refill Encounter Details Date Type Department Care Team (Late st Contact Info) Description 09/15/2023 Refill [facility] - [facility]enterology - [place] [address] [place] [phone] Priscila White MD [address] [place] [address] Medication Refill Social History Tobacco Use Types Packs/Day Years Used Date Smoking Tobacco: Never Passive Smoke Exposure: Never Smokeless Tobacco: Never Alcohol Use Standard Drinks/Week Comments Never 0 (1 standard drink = 0.6 oz pur e alcohol) [facility] Utilities Answer Date Recorded In the past 12 months has [employer], gas, oil, or water [employer] threatened to shut off services in your home? No 07/23/2023 Social Connection and Isolation Panel Answer Date Recorded In a typical week, how many times do you talk on the phone with family, friends, or neighbors? Patient declined 07/23/2023 How often do you get togethe r with friends or relatives? Patient declined 07/23/2023 How often do you attend adventism or uatsdin serv ices? Patient declined 07/23/2023 Do you belong to any clubs o r organizations such as adventism groups, unions, fraternal or athletic groups, or [...] Total Score - Questions 1-9 0 06/17 [facility] - Occupational Stress Questionnaire Answer Date Recorded [...] place to sleep or slept in a detention (including now)? Patient declined 07/23/2023 Sexually Active [...] Telephone Encounter - Tatiana Moser RN - 09/15/2023 8:19 AM CDT Medication refilled and signed per [facility] chronic medication standing order for pediatric and adult patients. documented in this encounter Plan of Treatment Upcoming Encounters Date Type Department Care Team (Late st Contact Info) Description 04/30/2025 2:00 PM HOSE CEMENTER [facility] - Primary Care - [place] [address] [place] [phone] Ben Perez MD [address] [place] [address] documented as of this encounter Visit Diagnoses Not on filedocumented in this encounter Additional Health Concerns Assessment Noted Time PHQ-9 Depression Total Score: 0 07/11/19 24 1:46 PM HOSE CEMENTER documented as of this encounter Care Teams Ceramist Relationship Specialty Start Date End Date Ben Perez MD PCP - General Internal Medicine 03/18/22 Zonia Stone APRN, NATURAL GAS TRADER [address] [place] [address] Nurse Practitioner Advanced Practice Nurse 05/27/23 Priscila White MD [address] [place] [address] Consulting Physician Gastroenterology 03/18/22 documented as of this encounter
[2025-01-23 19:16] LABS: Alanine Aminotransferase 22 U/L (6-35); Albumin Level 4.1 g/dL (3.5-5.1); Alkaline Phosphatase 73 U/L (38-126); Anion Gap 4 mmol/L (4-12); Aspartate Amino Transferase 57 U/L (14-36); Bilirubin,Total 0.5 mg/dL (0.2-1.3); Blood Urea Nitrogen 13 mg/dL (7-17); CRP 0.5 mg/dL (<1.0); Calcium 8.8 mg/dL (8.4-10.2); Carbon Dioxide 29 mmol/L (22-30); Chloride 103 mmol/L (98-107); Estimated Glomerular Filt Rate 58; Glucose 83 mg/dL (65-110); Potassium 4.3 mmol/L (3.4-5.0); Sodium 136 mmol/L (137-145); Total Protein 7.3 g/dL (6.3-8.2)
[2025-01-23 19:17] LABS: Hematocrit 43.4 % (37.0-47.0); Hemoglobin 13.8 g/dL (12.0-15.0); Immature Granulocyte Percent A 0.5 % (0-0.5); Lymphocytes Absolute Auto 1.26 K/mm3 (0.9-3.2); Mean Corpuscular HGB Conc 31.8 g/dl (32-36); Mean Corpuscular Hemoglobin 32.1 pg (26-34); Mean Corpuscular Volume 100.9 fl (80-100); Nucleated Red Blood Cells Absolute Auto 0.000 K/mm3 (0.0-0.012); Nucleated Red Blood Cells Perc 0.0 % (0.0-0.2); Platelet Count Result 215 k/mm3 (150-375); Red Blood Count 4.30 M/mm3 (4.2-5.4); White Blood Count 3.6 K/mm3 (4.5-10.0)
[2025-01-23 19:43] LABS: Add Urine Microscopic? YES; Appearance Urine Clear (Clear); Glucose Urine UA Negative (Negative); Leukocyte Esterase Ur Negative LEU/UL (Negative); Nitrate Urine Negative (Negative); Non Pathogenic Casts 0-2; Specific Grav Ur 1.021 (1.001-1.035)
== END 2025-01-23 11:09 | disposition home or self-care (01) ==
PROVIDERS: PCP Internal Medicine; Visit Provider Internal Medicine
DX: E55.9 Vitamin D deficiency, unspecified (principal); Z79.899 Other long term (current) drug therapy; M06.9 Rheumatoid arthritis, unspecified
CPT/HCPCS: 36415; 80053; 80069; 81001; 82306; 85025; 85652; 86140